=== PATIENT | male | born 1980 | race Caucasian/White ===

== ENCOUNTER 2016-04-23 07:33 | Emergency (ER) | payer OTHER ==
[2016-04-23 08:01] VITALS: BP 124/83
--- NOTE | 2016-04-23 09:21 | UC ---
Respiratory Complaint HPI - HPI Summary HPI Summary: ST, cough, malaise, hoarse for past week. SEems like ST is worsening. Subjective fevers, chills. Was around a bunch of college students last week. No flu shot - History of Current Complaint Chief Complaint: UCRespiratory Stated Complaint: THROAT,FEVER Time Seen by Provider: 04/23/16 07:45 Hx Obtained From: Patient Onset/Duration: Gradual Onset Timing: Constant Severity Initially: Mild Severity Currently: Mild Pain Intensity: 8 Pain Scale Used: 0-10 Numeric Character: Cough: Nonproductive Associated Signs And Symptoms: Positive: Chills, URI, Nasal Congestion, Hoarseness - Allergies/Home Medications Allergies/Adverse Reactions: Allergies Allergy/AdvReac Type Severity Reaction Status Date / Time No Known Allergies Allergy Verified 04/23/16 08:01 Home Medications: Home Medications Dextromethorphan-Phenylephrine [Vicks Dayquil Cold & Flu] 1 dose PO Q4HR PRN 09/01 [History Confirmed 04/23/16] Multivitamins/Minerals TAB* [Thera M Plus TAB*] 1 tab PO DAILY 04/23/16 [ History Confirmed 04/23/16] PMH/Surg Hx/FS Hx/Imm Hx Endocrine History Of: Reports: Thyroid Disease - Hypothyroidism Denies: Diabetes Cardiovascular History Of: Denies: Cardiac Disorders, Hypertension - Surgical History Surgical History: Yes Surgery Procedure, Year, and Place: TONSILLECTOMY. 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: With Family Alcohol Use: Occasionally Alcohol Amount: 1 glass wine daily Substance Use Type: None Smoking Status (MU): Never Smoked Tobacco - Immunization History Most Recent Tetanus Shot: unknown Review of Systems Constitutional: Fever, Chills, Fatigue Skin: Negative Eyes: Negative ENT: Sore Throat, Nasal Discharge Respiratory: Cough Cardiovascular: Negative Gastrointestinal: Negative Genitourinary: Negative Motor: Negative Neurovascular: Negative Musculoskeletal: Myalgia Neurological: Headache Psychological: Negative All Other Systems Reviewed And Are Negative: Yes Physical Exam Triage Information Reviewed: Yes Appearance: Well-Appearing, No Pain Distress, Well-Nourished Vital Signs: Initial Vital Signs Temp 98.2 F 04/23/16 07:53 Pulse 78 04/23/16 07:53 Resp 20 04/23/16 07:53 BP 124/83 04/23/16 07:53 Pulse Ox 99 04/23/16 07:53 Vital Signs Reviewed: Yes Eye Exam: Normal ENT: Positive: Hearing grossly normal, Pharynx normal, Nasal congestion, TMs normal, Muffled/hoarse voice - hoarse Neck exam: Normal Respiratory Exam: Normal Respiratory: Positive: Lungs clear, Normal breath sounds, No respiratory distress, No accessory muscle use Cardiovascular Exam: Normal Musculoskeletal Exam: Normal Neurological Exam: Normal Psychological Exam: Normal UC Diagnostic Evaluation - Laboratory O2 Sat by Pulse Oximetry: 99 Diagnostic Studies Comment: Strep neg Respiratory Course/Dx - Differential Dx/Diagnosis Provider Diagnoses: URI Discharge - Discharge Plan Condition: Stable Disposition: HOME Prescriptions: Guaifenesin-Codeine [Cheratussin AC] 1 - 2 teasp PO Q6HR PRN #120 ml MDD 30ml PRN Reason: cough or sore throat Patient Education Materials: Influenza (ED) Forms: *Work Release Referrals: Maryse PATTERSON,Bob Benavidez [Primary Care Provider] -
== END 2016-04-23 08:38 | disposition home or self-care (01) ==
LOC: UCCORT 07:33
DX: J06.9 Acute upper respiratory infection, unspecified (principal); Z98.84 Bariatric surgery status
CPT/HCPCS: 87651; 99212; G0463

== ENCOUNTER 2017-02-03 16:01 | Emergency (ER) | payer OTHER ==
[2017-02-03 16:28] VITALS: BP 146/95
--- NOTE | 2017-02-03 17:05 | UC ---
Throat Pain/Nasal Simon HPI - HPI Summary HPI Summary: pt c/o cough, nasal congestion, and sore throat X 4 days. - History of Current Complaint Chief Complaint: UCGeneralIllness Stated Complaint: SORE THROAT Time Seen by Provider: 02/03/17 16:58 Hx Obtained From: Patient Onset/Duration: Sudden Onset, Lasting Days Severity: Mild Cough: Nonproductive Associated Signs & Symptoms: Positive: Dysphagia - Epiglottits Risk Factors Epiglottis Risk Factors: Negative - Allergies/Home Medications Allergies/Adverse Reactions: Allergies Allergy/AdvReac Type Severity Reaction Status Date / Time No Known Allergies Allergy Verified 02/03/17 16:29 Home Medications: Home Medications metFORMIN* [Glucophage 1000 MG TAB *] 1,000 mg PO 0800,1700 02/03/17 [History Confirmed 02/03/17] PMH/Surg Hx/FS Hx/Imm Hx Previously Healthy: Yes - Surgical History Surgical History: Yes Surgery Procedure, Year, and Place: TONSILLECTOMY. stomach stapling feb 2013 - Family History Known Family History: Positive: None, Cardiac Disease - Social History Occupation: Employed Full-time Lives: With Family Alcohol Use: Occasionally Alcohol Amount: 1 glass wine daily Substance Use Type: None Smoking Status (MU): Never Smoked Tobacco Have You Smoked in the Last Year: No - Immunization History Most Recent Tetanus Shot: unknown Review of Systems Constitutional: Negative Skin: Negative Eyes: Negative ENT: Sore Throat, Other - nasal congestion Respiratory: Cough Cardiovascular: Negative Gastrointestinal: Negative Genitourinary: Negative Motor: Negative Neurovascular: Negative Musculoskeletal: Negative Neurological: Negative Psychological: Negative Is Patient Immunocompromised?: No All Other Systems Reviewed And Are Negative: Yes Physical Exam Triage Information Reviewed: Yes Appearance: Well-Appearing Vital Signs: Initial Vital Signs Temp 97.3 F 02/03/17 16:26 Pulse 81 02/03/17 16:26 Resp 16 02/03/17 16:26 BP 146/95 02/03/17 16:26 Pulse Ox 98 02/03/17 16:26 Eye Exam: Normal ENT Exam: Other ENT: Positive: Nasal congestion Dental Exam: Normal Neck exam: Normal Respiratory Exam: Normal Cardiovascular Exam: Normal Musculoskeletal Exam: Normal Neurological Exam: Normal Psychological Exam: Normal Skin Exam: Normal Throat Pain/Nasal Course/Dx - Differential Dx/Diagnosis Differential Diagnosis/HQI/PQRI: Influenza, Pharyngitis, URI Provider Diagnoses: URI. cough Discharge - Discharge Plan Condition: Stable Disposition: HOME Prescriptions: Benzonatate CAP* [Tessalon 100 MG CAP*] 100 mg PO Q8H PRN #30 cap PRN Reason: Cough predniSONE TAB* [Deltasone TAB*] 20 mg PO DAILY #4 tab Patient Education Materials: Viral Syndrome (ED), Acute Cough (ED) Referrals: Maryse PATTERSON,Bob Benavidez [Primary Care Provider] - If Needed
== END 2017-02-03 17:12 | disposition home or self-care (01) ==
LOC: UCCORT 16:01
DX: J06.9 Acute upper respiratory infection, unspecified (principal); R05 Cough
CPT/HCPCS: 87651; 99212; G0463

== ENCOUNTER 2017-07-17 09:09 | Emergency (ER) | payer OTHER ==
[2017-07-17 10:01] VITALS: BP 139/77
[2017-07-17] MEDS ORDERED: Acetaminophen TAB* 325 MG PO ONE (10:13)
--- NOTE | 2017-07-17 10:19 | UC ---
Lower Extremity/Ankle HPI - HPI Summary HPI Summary: Ankle pain on the left after racing [place] yesterday. He was able to bear wt afterwards. He has pain with walking. There is swelling. - History of Current Complaint Chief Complaint: UCLowerExtremity Stated Complaint: LFT ANKLE INJURY Time Seen by Provider: 07/17/17 09:58 Hx Obtained From: Patient Onset/Duration: Sudden Onset, Lasting Hours Severity Initially: Moderate Severity Currently: Moderate Pain Intensity: 8 Aggravating Factor(s): Standing, Ambulation Alleviating Factor(s): Elevation Able to Bear Weight: Yes - Allergies/Home Medications Allergies/Adverse Reactions: Allergies Allergy/AdvReac Type Severity Reaction Status Date / Time No Known Allergies Allergy Verified 07/17/17 10:02 Home Medications: Home Medications Levothyroxine TAB* [Synthroid TAB*] 175 mcg PO QAM 07/17/17 [History Confirmed 07/17/17] PMH/Surg Hx/FS Hx/Imm Hx Previously Healthy: No - obesity. - Surgical History Surgical History: Yes Surgery Procedure, Year, and Place: TONSILLECTOMY. stomach stapling feb 2013 - Family History Known Family History: Positive: None, Cardiac Disease - Social History Occupation: Employed Full-time Alcohol Use: Occasionally Alcohol Amount: 1 glass wine daily Substance Use Type: None Smoking Status (MU): Never Smoked Tobacco Have You Smoked in the Last Year: No - Immunization History Most Recent Tetanus Shot: unknown Review of Systems Musculoskeletal: Arthralgia, Decreased ROM, Edema All Other Systems Reviewed And Are Negative: Yes Physical Exam Triage Information Reviewed: Yes Appearance: Well-Nourished, Obese Vital Signs: Initial Vital Signs Temp 98.3 F 07/17/17 09:53 Pulse 102 07/17/17 09:53 Resp 18 07/17/17 09:53 BP 139/77 07/17/17 09:53 Pulse Ox 98 07/17/17 09:53 Vital Signs Reviewed: Yes Eye Exam: Normal Eyes: Positive: Conjunctiva Clear. Negative: Conjunctiva Inflamed ENT: Positive: Normal ENT inspection Neck: Positive: Supple, Nontender, No Lymphadenopathy Respiratory: Negative: Respiratory distress, Decreased breath sounds, Accessory muscle use Cardiovascular: Positive: Brisk Capillary Refill Abdomen Description: Positive: Soft. Negative: Distended, Guarding Musculoskeletal Exam: Other - Left proximal fibula non tender. There is swelling and effusion of the joint. tHere is mild tendenress fo the posterior medial malleolus. Anterior drawer and talar tilt reveal a stable joint without obvious laxity. Musculoskeletal: Positive: Edema @ Neurological: Positive: Alert, Muscle Tone Normal Psychological: Positive: Age Appropriate Behavior Skin: Negative: rashes Procedures - Splinting Pre-Made Type: debra wrap and stirrup gel splint. Pre-Proc Neuro Vasc Exam: normal Post-Proc Neuro Vasc Exam: normal Diagnostics - Radiology No standard instances Radiology Interpretation Completed By: Radiologist Lower Extremity Course/Dx - Differential Dx/Diagnosis Provider Diagnoses: ankle sprain. possible tendon injury. Discharge - Sign-Out/Discharge Documenting (check all that apply): Discharge/Admit/Transfer - Discharge Plan Condition: Good Disposition: HOME Prescriptions: Naproxen [Naproxen 500 mg tab] 500 mg PO BID PRN #20 tablet PRN Reason: Pain Patient Education Materials: Ankle Sprain (ED) Referrals: Bob Grijalva [Primary Care Provider] - - Billing Disposition and Condition Condition: GOOD Disposition: HOME
--- NOTE | 2017-07-17 10:43 | RAD ---
INDICATION: Left ankle injury. TECHNIQUE: 3 views of the left ankle were obtained. FINDINGS: There is diffuse soft tissue swelling. The bones are in normal alignment. No fracture is seen. Joint spaces appear maintained. IMPRESSION: SOFT TISSUE SWELLING, NO FRACTURE IS SEEN.
== END 2017-07-17 11:10 | disposition home or self-care (01) ==
LOC: UCCORT 09:09
DX: S93.402A Sprain of unspecified ligament of left ankle, initial encounter (principal); X50.0XXA Overexertion from strenuous movement or load, initial encounter; Y93.89 Activity, other specified; Y92.9 Unspecified place or not applicable
CPT/HCPCS: 99212; A9270-GY; G0463

== ENCOUNTER 2017-10-29 09:49 | Emergency (ER) | payer OTHER ==
[2017-10-29 10:15] VITALS: BP 157/98
--- NOTE | 2017-10-29 10:41 | RAD ---
INDICATION: Right foot injury. TECHNIQUE: 3 views of the right foot were obtained. FINDINGS: There is diffuse soft tissue swelling. No fracture is seen. IMPRESSION: NO EVIDENCE FOR FRACTURE. IF THE PATIENT'S SYMPTOMS PERSIST RECOMMEND FOLLOW-UP IMAGING.
--- NOTE | 2017-10-29 10:42 | UC ---
Lower Extremity/Ankle HPI - HPI Summary HPI Summary: right foot pain x 3 days injury 3 days ago to his right foot + pain and swelling of the foot, mostly at the right 4th and 5th toe - History of Current Complaint Chief Complaint: UCLowerExtremity Stated Complaint: RT FOOT INJURY S/P FALL Time Seen by Provider: 10/29/17 10:13 Hx Obtained From: Patient Onset/Duration: Sudden Onset, Lasting Days - 3, Still Present Severity Initially: Moderate Severity Currently: Moderate Pain Intensity: 8 Aggravating Factor(s): Standing, Ambulation Alleviating Factor(s): Rest, Elevation, Ice Able to Bear Weight: Yes - Allergies/Home Medications Allergies/Adverse Reactions: Allergies Allergy/AdvReac Type Severity Reaction Status Date / Time NSAIDS (Non-Steroidal AdvReac s/p Verified 10/29/17 10:10 Anti-Inflamma Gastric Bypass 2012 Home Medications: Home Medications Levothyroxine TAB* [Synthroid TAB*] 50 mcg PO DAILY 10/29/17 [History Confirmed 10/29/17] PMH/Surg Hx/FS Hx/Imm Hx Previously Healthy: Yes - Surgical History Surgical History: Yes Surgery Procedure, Year, and Place: Gastric Bypass and Hiatal Herniorrhaphy, 2012, [place]; T&A, 2009, [place] - Family History Known Family History: Positive: None, Cardiac Disease - Social History Alcohol Use: Weekly Alcohol Amount: 1 glass wine daily Substance Use Type: None Smoking Status (MU): Never Smoked Tobacco Have You Smoked in the Last Year: No - Immunization History Most Recent Tetanus Shot: 05/30/15 Review of Systems Constitutional: Negative Skin: Negative Eyes: Negative ENT: Negative Respiratory: Negative Is Patient Immunocompromised?: No All Other Systems Reviewed And Are Negative: Yes Physical Exam Triage Information Reviewed: Yes Appearance: No Pain Distress, Well-Nourished Vital Signs: Initial Vital Signs Temp 98.1 F 10/29/17 10:07 Pulse 98 10/29/17 10:07 Resp 17 10/29/17 10:07 BP 157/98 10/29/17 10:07 Pulse Ox 100 10/29/17 10:07 Vital Signs Reviewed: Yes Eye Exam: Normal Eyes: Positive: Conjunctiva Clear ENT: Positive: Normal ENT inspection, Hearing grossly normal, Pharynx normal Neck: Positive: Supple, Nontender, No Lymphadenopathy Respiratory: Positive: Chest non-tender, Lungs clear, Normal breath sounds Cardiovascular: Positive: RRR, No Murmur, Pulses Normal Musculoskeletal: Positive: Other: - right foot : + swelling, ecchymosis, tenderness at the right 4th and 5th toe Diagnostics - Laboratory Diagnostic Studies Completed/Ordered: xray right foot : IMPRESSION: NO EVIDENCE FOR FRACTURE. IF THE PATIENT'S SYMPTOMS PERSIST RECOMMEND. FOLLOW-UP IMAGING. Lower Extremity Course/Dx - Differential Dx/Diagnosis Provider Diagnoses: contusion right foot Discharge - Sign-Out/Discharge Documenting (check all that apply): Patient Departure - Discharge Plan Condition: Stable Disposition: HOME Patient Education Materials: Foot Contusion (ED) Referrals: Maryse PATTERSON,Bob Benavidez [Primary Care Provider] - If Needed - Billing Disposition and Condition Condition: STABLE Disposition: Home
== END 2017-10-29 10:49 | disposition home or self-care (01) ==
LOC: UCCORT 09:49
DX: S90.31XA Contusion of right foot, initial encounter (principal); W19.XXXA Unspecified fall, initial encounter; Y93.9 Activity, unspecified; Y92.9 Unspecified place or not applicable; Z88.6 Allergy status to analgesic agent
CPT/HCPCS: 99211; G0463

== ENCOUNTER 2018-04-09 13:28 | Emergency (ER) | payer BC, OTHER ==
[2018-04-09 14:02] VITALS: BP 143/95
--- NOTE | 2018-04-09 14:55 | UC ---
FLU HPI - HPI Summary HPI Summary: Pt c/o sudden onset of fever, chills, cough, body aches X 1 days. - History of Current Complaint Chief Complaint: UCGeneralIllness Stated Complaint: COUGH, SORE THROAT Time Seen by Provider: 04/09/18 14:33 Hx Obtained From: Patient Onset/Duration: Sudden Onset, Still Present Severity Currently: Mild Severity Initially: Moderate Pain Intensity: 0 Associated Signs & Symptoms: Positive: Myalgia, Cough, Sore Throat, Nasal Congestion, Headache Related Hx: Possible Flu/Infectious Exposure - Risk Factors Influenza Risk Factors: Negative - Allergy/Home Medications Allergies/Adverse Reactions: Allergies Allergy/AdvReac Type Severity Reaction Status Date / Time NSAIDS (Non-Steroidal AdvReac s/p Verified 04/09/18 14:02 Anti-Inflamma Gastric Bypass 2012 PMH/Surg Hx/FS Hx/Imm Hx Previously Healthy: Yes - Surgical History Surgical History: Yes Surgery Procedure, Year, and Place: Gastric Bypass and Hiatal Herniorrhaphy, 2012, [place]; T&A, 2009, [place] - Family History Known Family History: Positive: Cardiac Disease - Social History Occupation: Employed Full-time Lives: With Family Alcohol Use: Weekly Alcohol Amount: 1 glass wine daily Substance Use Type: None Smoking Status (MU): Never Smoked Tobacco Have You Smoked in the Last Year: No - Immunization History Most Recent Tetanus Shot: 05/30/15 Review of Systems All Other Systems Reviewed And Are Negative: Yes Constitutional: Positive: Fever, Chills, Fatigue Skin: Positive: Negative Eyes: Positive: Negative ENT: Positive: Sore Throat, Sinus Congestion Respiratory: Positive: Cough Cardiovascular: Positive: Negative Gastrointestinal: Positive: Negative Genitourinary: Positive: Negative Motor: Positive: Negative Neurovascular: Positive: Negative Musculoskeletal: Positive: Myalgia Neurological: Positive: Headache Psychological: Positive: Negative Is Patient Immunocompromised?: No Physical Exam Triage Information Reviewed: Yes Appearance: Ill-Appearing Vital Signs: Initial Vital Signs Temp 97.4 F 04/09/18 13:59 Pulse 73 04/09/18 13:59 Resp 18 04/09/18 13:59 BP 143/95 04/09/18 13:59 Pulse Ox 100 04/09/18 13:59 Vital Signs Reviewed: Yes Eye Exam: Normal ENT: Positive: Nasal congestion Dental Exam: Normal Neck exam: Normal Respiratory Exam: Normal Cardiovascular Exam: Normal Musculoskeletal Exam: Normal Neurological Exam: Normal Psychological Exam: Normal Skin Exam: Normal Diagnostics - Laboratory Diagnostic Studies Completed/Ordered: rapid flu: negative Flu Course/Dx - Differential Dx/Diagnosis Differential Diagnosis/HQI/PQRI: Influenza, Upper Respiratory Infection Provider Diagnosis: Acute viral syndrome Discharge - Sign-Out/Discharge Documenting (check all that apply): Patient Departure All imaging exams completed and their final reports reviewed: No Studies - Discharge Plan Condition: Stable Disposition: HOME Prescriptions: Albuterol HFA INHALER* [Ventolin HFA Inhaler*] 1 - 2 puff INH Q6H PRN #1 mdi PRN Reason: Sob/Wheezing Benzonatate CAP* [Tessalon 100 MG CAP*] 200 mg PO Q8H PRN #30 cap PRN Reason: Cough Patient Education Materials: Decongestant/Expectorant (By mouth), Viral Syndrome (ED) Referrals: Bob Grijalva [Primary Care Provider] - If Needed - Billing Disposition and Condition Condition: STABLE Disposition: Home
[2018-04-09 15:08] LABS: Influenza A Molecular NEGATIVE (Negative); Influenza B Molecular NEGATIVE (Negative)
== END 2018-04-09 15:18 | disposition home or self-care (01) ==
LOC: UCCORT 13:28
DX: B34.9 Viral infection, unspecified (principal); R05 Cough; R52 Pain, unspecified; J02.9 Acute pharyngitis, unspecified; M79.10 Myalgia, unspecified site; R51 Headache; Z88.6 Allergy status to analgesic agent; Z98.84 Bariatric surgery status
CPT/HCPCS: 99212; G0463

== ENCOUNTER 2019-02-16 13:24 | Emergency (ER) | payer BC ==
[2019-02-16 13:47] VITALS: BP 149/87
--- NOTE | 2019-02-16 13:50 | UC ---
Skin Complaint HPI - HPI Summary HPI Summary: 38-year-old male who scraped [place] left [place]. 2 days later he had a sharp shooting pain which awakened him during the night. He went to the emergency room had an x-ray which showed no foreign body and he states "no air bubbles". He was started on cephalexin and he has been doing Neosporin dressings since then. He states he continues to have severe pain in that area. - History of Current Complaint Chief Complaint: UCSkin Time Seen by Provider: 02/16/19 13:34 Stated Complaint: LT LEG INJURY Hx Obtained From: Patient Onset/Duration: Gradual Onset Skin Exposure Onset/Duration: Days Ago Timing: Constant Onset Severity: Mild Current Severity: Moderate Pain Intensity: 6 Location: Other Character: Pain - Left lower leg, Redness Aggravating Factor(s): Nothing Alleviating Factor(s): Nothing Associated Signs & Symptoms: Positive: Tenderness Related History: Trauma - Allergy/Home Medications Allergies/Adverse Reactions: Allergies Allergy/AdvReac Type Severity Reaction Status Date / Time NSAIDS (Non-Steroidal AdvReac s/p Verified 02/16/19 13:47 Anti-Inflamma Gastric Bypass 2012 Home Medications: Home Medications Cephalexin CAP* [Keflex CAP*] 500 mg PO BID 02/16/19 [History Confirmed 02/16/19 ] Depression Medication 1 tab PO DAILY 02/16/19 [History] Naproxen [Naproxen 375 mg tab] 375 mg PO BID 02/16/19 [History Confirmed ] PMH/Surg Hx/FS Hx/Imm Hx Previously Healthy: Yes Endocrine History: Diabetes - Borderline diabetes, Thyroid Disease - Hypothyroid - Surgical History Surgical History: Yes Surgery Procedure, Year, and Place: Gastric Bypass and Hiatal Herniorrhaphy, 2012, [place]; T&A, 2009, [place] - Family History Known Family History: Positive: Cardiac Disease - Social History Lives: With Family Alcohol Use: Weekly Alcohol Amount: wine Substance Use Type: Other Substance Use Comment - Amount & Last Used: CBD/ THC- bedtime Smoking Status (MU): Never Smoked Tobacco Have You Smoked in the Last Year: No - Immunization History Most Recent Tetanus Shot: 05/30/15 Review of Systems All Other Systems Reviewed And Are Negative: Yes Skin: Positive: Other - Patient has a scabbed over wound on the left lower leg. He did receive a tetanus immunization in the emergency room. Motor: Positive: Negative Neurovascular: Positive: Negative Musculoskeletal: Positive: Negative, Other: - Patient has had increased left lower leg pain. No calf tenderness. Neurological: Positive: Negative Is Patient Immunocompromised?: No Physical Exam Triage Information Reviewed: Yes Appearance: Well-Appearing, No Pain Distress, Well-Nourished Vital Signs: Initial Vital Signs Temp 97.9 F 02/16/19 13:38 Pulse 91 02/16/19 13:38 Resp 14 02/16/19 13:38 BP 149/87 02/16/19 13:38 Pulse Ox 98 02/16/19 13:38 Vital Signs Reviewed: Yes Musculoskeletal Exam: Normal Neurological Exam: Normal Psychological Exam: Normal Skin: Positive: Other - The patient has a scabbed over wound approximately 9.0 cm in length and approximately 2.0 cm in width that the widest point. It's dry , surrounded by redness however not necessarily warm to touch. No red streaks. Mild tenderness on palpation. Good peripheral pulses neuro sensation and capillary refill. Course/Dx - Course Course Of Treatment: The patient prefers to stay in [place] therefore I was able to get him an appointment at the wound care center after he leaves here for evaluation and possible treatment. He is to stop the cephalexin and I'm starting him on Bactrim DS one tab by mouth twice a day 10 days. He is to stop Neosporin dressings. I think he may be having some skin reaction to the neomycin in the Neosporin. He was also given Percocet 6 tablets for severe pain. He is to go directly to the wound care center from here. - Diagnoses Provider Diagnosis: Cellulitis, leg Discharge ED - Sign-Out/Discharge Documenting (check all that apply): Patient Departure All imaging exams completed and their final reports reviewed: No Studies - Discharge Plan Condition: Fair Disposition: HOME Prescriptions: oxyCODONE/Acetamin 5/325 MG* [Percocet 5/325 TAB*] 1 tab PO Q6H PRN #6 tab MDD 4 PRN Reason: Pain - Severe Sulfamethox/Trimethoprim DS* [Bactrim DS 800/160 TAB*] 1 tab PO BID 10 Days #20 tab Patient Education Materials: Cellulitis (DC) Referrals: Karn,Bob F., PA [Primary Care Provider] - Additional Instructions: Stop using Neosporin, stop the cephalexin and start the Bactrim today one tab by mouth twice a day for 10 days and take it with food. Elevate your leg as much as possible. You are to go directly to the wound care center for further evaluation and treatment. - Billing Disposition and Condition Condition: FAIR Disposition: Home
== END 2019-02-16 14:10 | disposition home or self-care (01) ==
LOC: UCCORT 13:24
DX: L03.116 Cellulitis of left lower limb (principal); E11.9 Type 2 diabetes mellitus without complications; Z88.8 Allergy status to other drugs, medicaments and biological substances
CPT/HCPCS: 99212; G0463